=== PATIENT | female | born 1995 | race African-American/Black ===

== ENCOUNTER 2017-11-04 18:06 | Emergency (ER) | payer OTHER ==
[~2017-11-04] VITALS: Ht 165.1 cm; Wt 115.2 kg
[~2017-11-04 18:06] MED LIST: IBUP-1060 PO; LABE200T2 PO; NIFE10CA PO; ONDA4TAB10 PO; RANI150T6 PO
[2017-11-04 18:48] VITALS: BP 147/102
[2017-11-04] MEDS ORDERED: TETRACAINE 0.5% OPHTH SOLUTION 4ML BOTTLE. OD ONE (19:00)
[2017-11-04] MEDS ORDERED: FLUORESCEIN OPHTH TEST STRIP. OD ONE (19:00)
[2017-11-04] MEDS ORDERED: OFLO5DRO OD (19:12)
--- NOTE | 2017-11-04 19:13 | PHYS DOC ---
Past Medical History Past Medical History: No Pertinent History, Hypertension Past Surgical History: No Surgical History Alcohol Use: None Drug Use: Marijuana Adult General Chief Complaint Chief Complaint: EYE PROBLEMS HPI HPI Patient is a 21 year old presents to the emergency department stating that yesterday she was crying and was rubbing her eyes. She states that she's been having pain in the right eye since this occurred. She does have a history of corneal abrasions to the right eye. She states she wears contact lenses and glasses however does not have them in currently. Patient is unsure when her last tetanus immunization occurred. Review of Systems Review of Systems Constitutional: Denies fever or chills [] Eyes: Denies change in visual acuity, redness, c/o right eye pain HENT: Denies nasal congestion or sore throat [] Respiratory: Denies cough or shortness of breath [] Cardiovascular: No additional information not addressed in HPI [] GI: Denies abdominal pain, nausea, vomiting, bloody stools or diarrhea [] : Denies dysuria or hematuria [] Musculoskeletal: Denies back pain or joint pain [] Integument: Denies rash or skin lesions [] Neurologic: Denies headache, focal weakness or sensory changes [] Endocrine: Denies polyuria or polydipsia [] All other systems were reviewed and found to be within normal limits, except as documented in this note. Current Medications Current Medications Current Medications Medications (Trade) Dose Ordered Sig/Bruno Start Time Stop Time Status Last Admin Dose Admin Fluorescein Sodium (Ful-Nelli) 1 strip 1X ONCE 11/04/17 19:00 11/04/17 19:01 DC 11/04/17 18:59 1 STRIP Tetracaine HCl (Tetracaine) 1 drop 1X ONCE 11/04/17 19:00 11/04/17 19:01 DC 11/04/17 18:59 1 DROP Allergies Allergies Allergies Coded Allergies Type Severity Reaction Last Updated Verified No Known Drug Allergies 01/25/16 No Physical Exam Physical Exam Constitutional: Well developed, well nourished, no acute distress, non-toxic appearance. [] HENT: Normocephalic, atraumatic, bilateral external ears normal, oropharynx moist, no oral exudates, nose normal. [] Eyes: PERRLA, EOMI, conjunctiva normal, no discharge. [] Neck: Normal range of motion, no tenderness, supple, no stridor. [] Cardiovascular:Heart rate regular rhythm] Lungs & Thorax: no respiratory distress noted Skin: Warm, dry, no erythema, no rash. [] Extremities: No tenderness, no cyanosis, no clubbing, ROM intact, no edema. [] Neurologic: Alert and oriented X 3, normal motor function, normal sensory function, no focal deficits noted. [] Psychologic: Affect normal, judgement normal, mood normal. [] Current Patient Data Vital Signs Vital Signs Date Time Temp Pulse Resp B/P (MAP) Pulse Ox O2 Delivery O2 Flow Rate FiO2 11/04/17 18:48 98.3 88 18 97 Room Air 98.3 EKG EKG [] Radiology/Procedures Radiology/Procedures [] Course & Med Decision Making Course & Med Decision Making Pertinent Labs and Imaging studies reviewed. (See chart for details) No foreign body noted in the right eye. Tetracaine was placed into the I've with upper lid inverted with no foreign body noted. Fluorescein uptake was noted between the 4- 6:00 area. Patient will be placed on naproxen with a tetanus immunization update. Patient will be discharged home in stable condition with recommendations to follow-up with ophthalmology tomorrow. She'll be provided per discussion for ofloxacin recommended Tylenol or ibuprofen for pain and discomfort. Patient will be discharged home in stable condition signs symptoms return back [facility]mers primary been provided. All questions and concerns been answered patient's bedside. [] Dragon Disclaimer Dragon Disclaimer This electronic medical record was generated, in whole or in part, using a voice recognition dictation system. Departure Departure Impression: Primary Impression: Right corneal abrasion Disposition: 01 HOME, SELF-CARE Condition: STABLE Referrals: SHOLA MADSEN BAGGER AND STOCK HANDLER HELPER (PCP) Patient Instructions: Eye - Corneal Abrasion, [id number] Additional Instructions: Activity as tolerated. Medications as prescribed. Tylenol or ibuprofen for pain and discomfort. Do not place her contact lenses and until instructed to do so by your mechanical developer prover. Follow-up through mechanical developer prover in the next 24 hours. Return back to emergency #symptoms become worse. Scripts Ofloxacin (OCUFLOX) 5 Ml Drops 1-2 DROP OD BID, #[address] 1-2 drops in the right eye for the 5-7 days Prov: LAZARA ENAMORADO ACCESSIBILITY LIFT TECHNICIAN 12/21/17 Problem Qualifiers Primary Impression: Right corneal abrasion Encounter type: initial encounter Qualified Codes: S05.01XA - Injury of conjunctiva and corneal abrasion without foreign body, right eye, initial encounter LAZARA ENAMORADO ACCESSIBILITY LIFT TECHNICIAN Nov 04, 2017 19:13
[2017-11-04] MEDS ORDERED: DIPHTH,PERTUSS(ACELL),TET TOX 0.5 ML DISP.SYRIN. VAX IM ONE (19:15)
== END 2017-11-04 19:16 | disposition home or self-care (01) ==
LOC: ER 18:06
DX: S05.01XA Injury of conjunctiva and corneal abrasion without foreign body, right eye, initial encounter (principal); I10 Essential (primary) hypertension; F12.10 Cannabis abuse, uncomplicated; X58.XXXA Exposure to other specified factors, initial encounter; Y93.89 Activity, other specified; Y99.8 Other external cause status; Y92.89 Other specified places as the place of occurrence of the external cause
CPT/HCPCS: 90471; 90715; 99283-25

== ENCOUNTER 2018-04-24 12:34 | Emergency (ER) | payer SELFPAY, OTHER ==
[2018-04-24 13:17] LABS: BILIRUBIN,URINE NEGATIVE (NEG); CLARITY,URINE CLEAR; COLOR,URINE YELLOW; GLUCOSE,URINE NEGATIVE (NEG); NITRITE,URINE NEGATIVE (NEG); PROTEIN,URINE NEGATIVE (NEG-TRACE); UROBILINOGEN,URINE 0.2 mg/dL (0.2 mg/dL)
[2018-04-24 13:19] LABS: URINE HCG POC HCG POSITIVE (Negative)
[2018-04-24] MEDS: HYDROcodone/APAP 5/325MG 1 TAB TABLET PO (13:19)
[2018-04-24] MEDS: IBUPROFEN 800 MG TABLET. PO (13:19)
[2018-04-24 13:41] LABS: BACTERIA,URINE MOD /HPF (0-FEW); SQUAMOUS EPITHELIAL CELL,UR MOD /LPF
== END 2018-04-24 14:07 | disposition home or self-care (01) ==
LOC: ER 12:34
DX: R51 Headache (principal); I10 Essential (primary) hypertension
CPT/HCPCS: 81001; 81025; 99283

== ENCOUNTER 2018-05-11 15:19 | Emergency (ER) | payer SELFPAY ==
[2018-05-11 15:59] LABS: URINE HCG POC HCG NEGATIVE (Negative)
[2018-05-11 16:57] LABS: ADD MAN DIFF? NO
[2018-05-11 17:00] LABS: BASO % 0 % (0-3); EOS # 0.1 x10^3/uL (0.0-0.7); EOS % 1 % (0-3); HEMATOCRIT 37.7 % (36.0-47.0); HEMOGLOBIN 12.4 g/dL (12.0-15.5); LYMPH # 2.4 x10^3/uL (1.0-4.8); LYMPH % 21 % (24-48); MEAN CORPUSCULAR HEMOGLOBIN 25 pg (25-35); MEAN CORPUSCULAR HGB CONC 33 g/dL (31-37); MEAN CORPUSCULAR VOLUME 76 fL (79-100); MONO # 0.5 x10^3/uL (0.0-1.1); MONO % 4 % (0-9); NEUT # 8.7 x10^3uL (1.8-7.7); NEUT % 74 % (31-73); PLATELET COUNT 316 x10^3/uL (140-400); RED BLOOD COUNT 4.96 x10^6/uL (3.50-5.40); RED CELL DISTRIBUTION WIDTH 16.3 % (11.5-14.5); WHITE BLOOD COUNT 11.8 x10^3/uL (4.0-11.0)
[2018-05-11 17:01] LABS: BILIRUBIN,URINE NEGATIVE (NEG); CLARITY,URINE TURBID; COLOR,URINE YELLOW; GLUCOSE,URINE NEGATIVE (NEG); NITRITE,URINE NEGATIVE (NEG); PH,URINE 6.5; PROTEIN,URINE NEGATIVE (NEG-TRACE)
[2018-05-11 17:16] LABS: AMORPHOUS SEDIMENT,UR PRESENT /HPF; BACTERIA,URINE MODERATE /HPF (0-FEW); SQUAMOUS EPITHELIAL CELL,UR MOD /LPF
[2018-05-12 23:12] LABS: CHLAMYDIA PROBE Negative (Negative); GC PROBE Negative (Negative)
== END 2018-05-11 18:40 | disposition home or self-care (01) ==
LOC: ER 18:40
DX: O20.0 Threatened abortion (principal); O23.591 Infection of other part of genital tract in pregnancy, first trimester; N76.0 Acute vaginitis; B96.89 Other specified bacterial agents as the cause of diseases classified elsewhere; O34.80 Maternal care for other abnormalities of pelvic organs, unspecified trimester; N83.201 Unspecified ovarian cyst, right side; O16.9 Unspecified maternal hypertension, unspecified trimester; O99.324 Drug use complicating childbirth; F12.10 Cannabis abuse, uncomplicated; Z3A.00 Weeks of gestation of pregnancy not specified
CPT/HCPCS: 36415; 76801; 76817; 81001; 81025; 84702; 85025; 87086; 87491; 87591; 99285-25; Q0111

== ENCOUNTER 2018-06-09 18:13 | Emergency (ER) | payer SELFPAY, OTHER | END 2018-06-09 18:43 | disposition home or self-care (01) | LOC: ER 18:13 | DX: S46.911A Strain of unspecified muscle, fascia and tendon at shoulder and upper arm level, right arm, initial encounter (principal); I10 Essential (primary) hypertension; X58.XXXA Exposure to other specified factors, initial encounter; Y93.89 Activity, other specified; Y92.89 Other specified places as the place of occurrence of the external cause; Y99.8 Other external cause status | CPT/HCPCS: 99283 ==

== ENCOUNTER 2019-03-10 01:23 | Emergency (ER) | payer SELFPAY ==
[~2019-03-10] VITALS: Ht 165.1 cm; Wt 114.3 kg
[~2019-03-10 01:23] MED LIST changes: +CYCL5TAB PO; -LABE200T2 PO; +LABE200T4 PO; +METR500T PO; +OFLO5DRO OD; +RANI-376 PO; -RANI150T6 PO
[2019-03-10 01:36] VITALS: BP 149/89
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
[2019-03-10] MEDS ORDERED: CYCLOBENZAPRINE 10 MG TABLET. PO ONE (02:00)
[2019-03-10] MEDS ORDERED: KETOROLAC 30 MG/ML VIAL. IM ONE (02:00)
[2019-03-10] MEDS ORDERED: IBUPROFEN 200 MG TABLET. PO ONE (02:00)
[2019-03-10] MEDS ORDERED: ORPH100T PO (02:52)
[2019-03-10] MEDS ORDERED: NAPR-695 PO (02:52)
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
== END 2019-03-10 03:03 | disposition home or self-care (01) ==
LOC: ER 01:23
DX: S46.812A Strain of other muscles, fascia and tendons at shoulder and upper arm level, left arm, initial encounter (principal); I10 Essential (primary) hypertension; V43.52XA Car driver injured in collision with other type car in traffic accident, initial encounter; Y93.89 Activity, other specified; Y92.410 Unspecified street and highway as the place of occurrence of the external cause; Y99.8 Other external cause status
CPT/HCPCS: 73000; 73030; 81025; 96372; 99284; J1885

== ENCOUNTER 2021-09-09 00:26 | Emergency (ER) | payer SELFPAY ==
[~2021-09-09] VITALS: Ht 167.6 cm; Wt 103.0 kg
[~2021-09-09 00:26] MED LIST changes: +NAPR-695 PO; +ORPH100T PO
[2021-09-09 03:58] LABS: INFLUENZA A PATIENT NEGATIVE (NEGATIVE)
[2021-09-09 04:05] LABS: INFLUENZA B PATIENT POSITIVE (NEGATIVE)
[2021-09-09 04:45] LABS: BASO # 0.1 x10^3/uL (0.0-0.2); BASO % 0 % (0-3); EOS # 0.1 x10^3/uL (0.0-0.7); EOS % 0 % (0-3); HEMATOCRIT 33.8 % (36.0-47.0); HEMOGLOBIN 11.6 g/dL (12.0-15.5); LYMPH # 1.1 x10^3/uL (1.0-4.8); LYMPH % 5 % (24-48); MEAN CORPUSCULAR HEMOGLOBIN 27 pg (25-35); MEAN CORPUSCULAR HGB CONC 34 g/dL (31-37); MEAN CORPUSCULAR VOLUME 78 fL (79-100); MONO # 0.5 x10^3/uL (0.0-1.1); MONO % 2 % (0-9); NEUT # 18.7 x10^3/uL (1.8-7.7); NEUT % 92 % (31-73); PLATELET COUNT 295 x10^3/uL (140-400); RED BLOOD COUNT 4.34 x10^6/uL (3.50-5.40); RED CELL DISTRIBUTION WIDTH 15.5 % (11.5-14.5); WHITE BLOOD COUNT 20.3 x10^3/uL (4.0-11.0)
--- NOTE | 2021-09-09 05:05 | RAD ---
Examination: Bilateral Lower Extremity Venous Doppler Ultrasound History: Shortness of breath Comparison: None Procedure: Thurman scale, color flow 2D and spectal waveform analysis images are obtained with and witho ut compression in the area of the common femoral vein, superficial femoral vein - femoral vein juncti on, main femoral vein (superficial femoral vein) and popliteal vein. Veins of the proximal calf are a lso imaged. Findings: There is normal duplex flow, color flow and compressibility of all visualized vein segments. No evide nce of deep venous thrombus is present. Impression: No evidence of DVT in the bilateral lower extremity venous system. Electronically signed by: Kd Braswell MD (09/09/2021 5:03 AM) [id number]
--- NOTE | 2021-09-09 05:12 | RAD ---
EXAM: US OB Limited CLINICAL HISTORY: Intrauterine COMPARISON: None available. TECHNIQUE: Limited transabdominal ultrasound of the uterus was performed. FINDINGS: Single living intrauterine identified with heart rate 155 bpm. position is ceph alic. The placenta is in the posterior wall. Placental grade is grade 0. The biparietal diameter measures 4.2 cm corresponding to 19 weeks and 0 days. The head circumference measures 17.4 cm corresponding to 20 weeks and 0 days Abdominal circumference measures 14.0 cm corresponding to 19 weeks and 3 days. Femur length measures 3 cm corresponding to 19 weeks and 2 days. Ultrasound age 19 weeks and 3 days with estimated date delivery 01/31/2022. IMPRESSION: Single living intrauterine as above. Electronically signed by: Kd Braswell MD (09/09/2021 5:09 AM) [id number]
[2021-09-09 05:33] LABS: % LYMPHS 6 % (24-48); % MONOS 2 % (0-10); % SEGS 92 % (35-66); PLT ESTIMATE ADEQUATE (ADEQUATE)
[2021-09-09 05:41] LABS: CALCIUM 8.6 mg/dL (8.5-10.1); CREATININE 0.5 mg/dL (0.6-1.0); GFR 179.1; POTASSIUM 3.7 mmol/L (3.5-5.1)
[2021-09-09 05:47] LABS: ALBUMIN 3.1 g/dL (3.4-5.0); ALBUMIN/GLOBULIN RATIO 0.9 (1.0-1.7); TOTAL BILIRUBIN 0.4 mg/dL (0.2-1.0); TOTAL PROTEIN 6.5 g/dL (6.4-8.2)
--- NOTE | 2021-09-09 06:12 | PHYS DOC ---
Past Medical History Past Medical History: Hypertension (CHANTE BRITO DO) Past Surgical History: No Surgical History (CHANTE BRITO DO) Smoking Status: Never Smoker Alcohol Use: None Drug Use: Marijuana (CHANTE BRITO DO) General Adult EDM: Chief Complaint: SHORTNESS OF BREATH HPI: HPI: 25 yo Afro-[place] F@proximately 19 weeks , presents the ED with complaints of " I cannot breathe," for the past 2 days with associated nasal congestion. Patient reports tested positive for Covid and gave the disease to her mother 1 month ago who from Covid at 63 years of age- is planning on getting vaccinated now. Reports history of elevated blood pressure in both pregnancies but is unsure if she was ever diagnosed with preeclampsia. Her has been followed at [facility] and takes a baby aspirin daily. No history of underlying asthma COPD or lung disease. No history of blood clots. Only medication she takes is a vitamin. No alcohol or drug use. Has no pcp. (CHANTE BRITO DO) Review of Systems: Review of Systems: Constitutional: Denies fever or chills. [] Eyes: Denies change in visual acuity. [] HENT: Denies nasal congestion or sore throat. [] Respiratory: Denies cough or hemoptysis Cardiovascular: Denies chest pain or edema. [] GI: Denies abdominal pain, nausea, vomiting, bloody stools or diarrhea. [] : Denies dysuria or vaginal bleeding Musculoskeletal: Denies back pain or joint pain or lower extremity swelling Integument: Denies rash or diaphoresis Neurologic: Denies headache, focal weakness or sensory changes. [] Endocrine: Denies polyuria or polydipsia. [] Lymphatic: Denies swollen glands. [] Psychiatric: Denies depression or anxiety. [] (CHANTE BRITO DO) Heart Score: C/O Chest Pain: No Risk Factors: Risk Factors: DM, Current or recent (<one month) smoker, HTN, HLP, family history of CAD, obesity. Risk Scores: Score 0 - 3: 2.5% MACE over next 6 weeks - Discharge Home Score 4 - 6: 20.3% MACE over next 6 weeks - Admit for Clinical Observation Score 7 - 10: 72.7% MACE over next 6 weeks - Early Invasive Strategies (CHANTE BRITO DO) Allergies: Allergies: Allergies Coded Allergies Type Severity Reaction Last Updated Verified No Known Drug Allergies 01/25/16 No ([facility] Physical Exam: PE: Constitutional: Well developed, well nourished, no acute distress, non-toxic appearance, elevated blood pressure, obese HENT: Normocephalic, atraumatic, Eyes: EOMI, conjunctiva normal, no discharge. Neck: Normal range of motion, supple, Cardiovascular: S1/2 present, regular rhythm Lungs & Thorax: Speaking in full sentences, bilateral equal chest rise, no tachypnea or increased work of breathing, no hypoxia Abdomen: soft, no tenderness, Skin: Warm, dry, no erythema, no rash. [] Back: No tenderness, no CVA tenderness. [] Extremities: No tenderness, no cyanosis, no unilateral lower extremity edema Neurologic: Alert and oriented X 3, normal motor function, normal sensory function, no focal deficits noted. [] Psychologic: Affect normal, judgement normal, mood normal. [] ([facility] Current Patient Data: Labs: Laboratory Tests Test 09/09/21 03:38 09/09/21 04:38 09/09/21 05:25 Influenza Type A Antigen Negative (NEGATIVE) Influenza Type B Antigen Positive (NEGATIVE) *A SARS-CoV-2 Antigen (Rapid) Negative (NEGATIVE) White Blood Count 20.3 x10^3/uL (4.0-11.0) H Red Blood Count 4.34 x10^6/uL (3.50-5.40) Hemoglobin 11.6 g/dL (12.0-15.5) L Hematocrit 33.8 % (36.0-47.0) L Mean Corpuscular Volume 78 fL (79-100) L Mean Corpuscular Hemoglobin 27 pg (25-35) Mean Corpuscular Hemoglobin Concent 34 g/dL (31-37) Red Cell Distribution Width 15.5 % (11.5-14.5) H Platelet Count 295 x10^3/uL (140-400) Neutrophils (%) (Auto) 92 % (31-73) H Lymphocytes (%) (Auto) 5 % (24-48) L Monocytes (%) (Auto) 2 % (0-9) Eosinophils (%) (Auto) 0 % (0-3) Basophils (%) (Auto) 0 % (0-3) Neutrophils # (Auto) 18.7 x10^3/uL (1.8-7.7) H Lymphocytes # (Auto) 1.1 x10^3/uL (1.0-4.8) Monocytes # (Auto) 0.5 x10^3/uL (0.0-1.1) Eosinophils # (Auto) 0.1 x10^3/uL (0.0-0.7) Basophils # (Auto) 0.1 x10^3/uL (0.0-0.2) Segmented Neutrophils % 92 % (35-66) H Lymphocytes % 6 % (24-48) L Monocytes % 2 % (0-10) Platelet Estimate Adequate (ADEQUATE) Maternal Serum HCG Beta Subunit 8641 mIU/mL (0-5) H Sodium Level 139 mmol/L (136-145) Potassium Level 3.7 mmol/L (3.5-5.1) Chloride Level 101 mmol/L (98-107) Carbon Dioxide Level 25 mmol/L (21-32) Anion Gap 13 (6-14) Blood Urea Nitrogen 5 mg/dL (7-20) L Creatinine 0.5 mg/dL (0.6-1.0) L Estimated GFR (Cockcroft-Gault) 179.1 BUN/Creatinine Ratio 10 (6-20) Glucose Level 105 mg/dL (70-99) H Calcium Level 8.6 mg/dL (8.5-10.1) Total Bilirubin 0.4 mg/dL (0.2-1.0) Aspartate Amino Transferase (AST) 8 U/L (15-37) L Alanine Aminotransferase (ALT) 15 U/L (14-59) Alkaline Phosphatase 51 U/L (46-116) Troponin I Quantitative < 0.017 ng/mL (0.000-0.055) Total Protein 6.5 g/dL (6.4-8.2) Albumin 3.1 g/dL (3.4-5.0) L Albumin/Globulin Ratio 0.9 (1.0-1.7) L Laboratory Tests 09/09/21 04:38 Laboratory Tests 09/09/21 05:25 Vital Signs: Vital Signs Date Time Temp Pulse Resp B/P (MAP) Pulse Ox O2 Delivery O2 Flow Rate FiO2 09/09/21 04:36 86 20 157/98 (117) 95 Room Air 09/09/21 03:25 98.2 98.2 (CHANTE BRITO DO) EKG: EKG: [] (CHANTE BRITO DO) Radiology/Procedures: Radiology/Procedures: [] IMAGING REPORT Signed PATIENT: NAHEED MCINTYRE JACCOUNT: [id number] : 1995 LOCATION: ER AGE: 25 SEX: F EXAM STATUS: REG ER ORD. PHYSICIAN: CHANTE BRITO DO REASON: confirm iup, 19 weeks? PROCEDURE: OB LIMITED EXAM: US OB Limited CLINICAL HISTORY: Intrauterine COMPARISON: None available. TECHNIQUE: Limited transabdominal ultrasound of the uterus was performed. FINDINGS: Single living intrauterine identified with heart rate 155 bpm. position is cephalic. The placenta is in the posterior wall. Placental grade is grade 0. The biparietal diameter measures 4.2 cm corresponding to 19 weeks and 0 days. The head circumference measures 17.4 cm corresponding to 20 weeks and 0 days Abdominal circumference measures 14.0 cm corresponding to 19 weeks and 3 days. Femur length measures 3 cm corresponding to 19 weeks and 2 days. Ultrasound age 19 weeks and 3 days with estimated date delivery 01/31/2022. IMPRESSION: Single living intrauterine as above. Electronically signed by: Kd Braswell MD (09/09/2021 5:09 AM) [id number] DICTATED and SIGNED BY: KD BRASWELL MD DATE: 09/09/21 [id number] 0 IMAGING REPORT Signed PATIENT: NAHEED MCINTYRE JACCOUNT: [id number] : 1995 LOCATION: ER AGE: 25 SEX: F EXAM STATUS: REG ER ORD. PHYSICIAN: CHANTE BRITO DO REASON: soa, r/o dvt PROCEDURE: VENOUS LOWER EXT BILATERAL Examination: Bilateral Lower Extremity Venous Doppler Ultrasound History: Shortness of breath Comparison: None Procedure: Thurman scale, color flow 2D and spectal waveform analysis images are obtained with and without compression in the area of the common femoral vein, s uperficial femoral vein - femoral vein junction, main femoral vein (superficial femoral vein) and popliteal vein. Veins of the proximal calf are also imaged. Findings: There is normal duplex flow, color flow and compressibility of all visualized vein segments. No evidence of deep venous thrombus is present. Impression: No evidence of DVT in the bilateral lower extremity venous system. Electronically signed by: Kd Braswell MD (09/09/2021 5:03 AM) [id number] DICTATED and SIGNED BY: KD BRASWELL MD DATE: 09/09/21 [id number] 0 (CHANTE BRITO DO) Radiology/Procedures: IMAGING REPORT Signed PATIENT: NAHEED MCINTYRE JACCOUNT: [id number] : 1995 LOCATION: ER AGE: 25 SEX: F EXAM STATUS: REG ER ORD. PHYSICIAN: CHANTE BRITO DO REASON: soa, r/o pe, h/o cardiomegaly PROCEDURE: CT ANGIOGRAPHY CHEST Exam Date: 09/09/2021 7:07 AM CTA CHEST Indication: Reason: soa, r/o pe, h/o cardiomegaly / Spl. Instructions: IV omni 350 90 mls / History: . TECHNIQUE: CT angiogram of the chest was performed following the administration of nonionic intravenous contrast for evaluation of pulmonary em bolus. 3D MIPs were created and reviewed on an independent workstation to assist in diagnosis and clinical management. One or more of the following dose reduction techniques were utilized: *Automated exposure control (AEC) *Adjustment of mA and/or kV according to patient size *Use of iterative reconstruction technique *CT scan done according to ALARA, or ALARA/IMAGE GENTLY FINDINGS: There is slightly suboptimal opacification of the pulmonary arteries due to bolus timing. No definite central intravascular filling defects are appreciated. There is no definite evidence for central pulmonary embolus. The aorta is normal in caliber without evidence for dissection. The heart is normal in size without pericardial effusion. The visualized thyroid gland is within normal limits. No lymphadenopathy is seen. There are patchy groundglass infiltrates scattered throughout the lungs bila terally consistent with atypical multifocal pneumonia. The central airways are patent. There is no pleural effusion or pneumothorax. There is a 2 mm subpleural nodule in the left lung on image 82 series 3. Images of the upper abdomen demonstrate no focal abnormality. Osseous structures are intact. IMPRESSION: Slightly suboptimal opacification of the pulmonary arteries due to bolus timing limits evaluation. No definite evidence for central pulmonary embolus, allowing for the limitations of the exam. Patchy groundglass infiltrates in the lungs bilaterally are nonspecific but sugg estive of atypical pneumonia. Continued imaging follow-up to resolution is recommended following treatment. 2 mm lung nodule on the left. According to the 2017 Fleischner Society Guidelines for Management of Incidental Pulmonary Nodules Detected on CT, for low risk patients (minimal or absent history of smoking or other known risk factors), non-calcified solid nodules less than or equal to 6 mm in diameter do not require routine follow up. If risk factors exist or the nodule has an upper lobe location, a follow up CT is optional in 12 months. If unchanged at that time, no further follow up is needed. Electronically signed by: Cassie Coleman MD (09/09/2021 7:41 AM) [id number] DICTATED and SIGNED BY: CASSIE COLEMAN MD DATE: 09/09/21 [id number] 0 (CHIOMA PINEDA DO) Course & Med Decision Making: Course & Med Decision Making Pertinent Labs and Imaging studies reviewed. (See chart for details) Concern for uncontrolled hypertension secondary to menstrual less than 20 weeks with chest x-ray concerning for cardiomegaly compared to prior chest x-ray in 2016. Patient positive for influenza B with nonspecific leukocytosis. Ultrasound shows no DVT. Given elevated blood pressure, increased heart size, with recent Covid, patient is pending CTA of the chest to evaluate for pulmonary embolus. Urinalysis still pending to evaluate for proteinuria. Patient has no signs of severe symptoms preeclampsia-no blurry vision, no altered mental status, lower extremity edema or pulmonary edema. Due to shift change patient was signed out to oncoming physician Dr. Elena dumont for further medical evaluation disposition. (CHANTE BRITO DO) Course & Med Decision Making This patient was initially seen by Dr. Brito. I assumed care at 0600 today. Please see her note for further details of H&P. The patient had a CT angiogram of the chest, which revealed no evidence of PE, cardiomegaly or pericardial effusion. She does have atypical pneumonia/pneumonitis findings, which are consistent with her influenza B diagnosis. She manifests no evidence of respiratory failure or distress. No hypoxia. Her blood pressure is somewhat improved. The patient reports that she thinks she sees someone named Dr. Hankins at an [facility] for her care. I was ultimately able to get a hold of the office and I spoke with one of the office nurses, who is quite familiar with her. The patient actually has a scheduled appointment in 2 days. She was supposed to follow-up for a 24-hour urinalysis to follow for proteinuria. She never followed up on this. They are aware of her chronic and uncontrolled hypertension and has a history of noncompliance. She has been previously prescribed labetalol, with reported noncompliance. I discussed all of this with the patient. I explained how important it is for her to comply with medical management and medical treatment and her physicians recommendations. I told her to keep her appointment with her OB in 2 days, as scheduled. Currently, there is no indication for hospital admission, further invasive exams. She does reports having some nausea, which has been present since the beginning of this . She is given 1 dose of Zofran here. She will be prescribed antiemetics for discharge. Home care instructions are given. She is within 48 hours of onset of influenza symptoms, so she is prescribed Tamiflu. She is amenable to taking this. She promises to comply with medical treatment, including medications and follow-up for her 24 urine. Strict return precautions are given. (CHIOMA PINEDA DO) Jill Disclaimer: Jill Disclaimer: This electronic medical record was generated, in whole or in part, using a voice recognition dictation system. (CHANTE BRITO DO) Departure Departure Impression: Primary Impression: Dyspnea Qualified Codes: R06.00 - Dyspnea, unspecified Additional Impressions: Influenza B Chronic hypertension Non-compliance with treatment Disposition: HOME / SELF CARE / HOMELESS Condition: STABLE Referrals: NO PCP (PCP) Patient Instructions: Bird Flu, Je Influenza Viruses, Hypertension During Additional Instructions: Please take the prescribed medications as directed. It is very important that you monitor your blood pressure at home, take the blood pressure medications as prescribed. You have a scheduled appointment in your OB office for the , i.e. in 2 days. You are supposed to return a 24-hour urine to assess for protein in your urine, as instructed by your OB doctors office, please follow-up for this as well. You have a contagious disease, influenza, so you should wear a mask, you should not be around others who may be prone to more severe di sease, such as people who have lung disease, asthma, COPD, people who are immune compromised. You should refrain from going out in public unnecessarily, as you may spread your influenza infection to others. Return to the ER for severe chest pain, more severe shortness of breath, if your oxygen level drops below 90%, if you have uncontrolled vomiting, dehydration or any other concerns. Keep your appointment with your OB in 2 days. Scripts Oseltamivir Phosphate (TAMIFLU) 75 Mg Capsule 1 CAP PO BID for 5 Days, #10 CAP Prov: CHIOMA PINEDA DO 09/09/21 Doxylamine/Pyridoxine Hcl (DICLEGIS DR 10-10 MG TABLET) 1 Each Tablet.dr 1 EACH PO QHS for vomiting, #20 TAB.SR Prov: CHIOMA PINEDA DO 09/09/21 Labetalol Hcl (LABETALOL HCL) 100 Mg Tablet 1 TAB PO BID for hypertension, #60 TAB 5 Refills Prov: CHIOMA PINEDA DO 09/09/21 CHANTE BRITO DO Sep 09, 2021 06:12 CHIOMA PINEDA DO Sep 09, 2021 07:54
[2021-09-09] MEDS ORDERED: IOHEXOL 350 MG/ML 100 ML VIAL. IV ONE (07:15)
--- NOTE | 2021-09-09 07:40 | RAD ---
XR CHEST 1V Clinical History: Reason: soa / Spl. Instructions: / History: Technique: AP view of the chest was obtained at 09/09/2021 3:44 AM. Comparison: None. Findings: The cardiomediastinal silhouette is normal. The pulmonary vasculature is normal. There is a few subtl e peripheral patchy opacities bilaterally. Impression: Minimal pulmonary infiltrates could be early atypical pneumonia. Electronically signed by: Edward Bird III, MD (09/09/2021 7:37 AM) [facility]
--- NOTE | 2021-09-09 07:43 | RAD ---
Exam Date: 09/09/2021 7:07 AM CTA CHEST Indication: Reason: soa, r/o pe, h/o cardiomegaly / Spl. Instructions: IV omni 350 90 mls / History: . TECHNIQUE: CT angiogram of the chest was performed following the administration of nonionic intrave nous contrast for evaluation of pulmonary embolus. 3D MIPs were created and reviewed on an [employer] workstation to assist in diagnosis and clinical management. One or more of the following dose red uction techniques were utilized: *Automated exposure control (AEC) *Adjustment of mA and/or kV according to patient size *Use of iterative reconstruction technique *CT scan done according to ALARA, or ALARA/IMAGE GENTLY FINDINGS: There is slightly suboptimal opacification of the pulmonary arteries due to bolus timing. No definit e central intravascular filling defects are appreciated. There is no definite evidence for central p ulmonary embolus. The aorta is normal in caliber without evidence for dissection. The heart is normal in size without pericardial effusion. The visualized thyroid gland is within normal limits. No lymphadenopathy is seen. There are patchy groundglass infiltrates scattered throughout the lungs bilaterally consistent with a typical multifocal pneumonia. The central airways are patent. There is no pleural effusion or pneumothorax. There is a 2 mm subpleural nodule in the left lung on image 82 series 3. Images of the upper abdomen demonstrate no focal abnormality. Osseous structures are intact. IMPRESSION: Slightly suboptimal opacification of the pulmonary arteries due to bolus timing limits evaluation. N o definite evidence for central pulmonary embolus, allowing for the limitations of the exam. Patchy groundglass infiltrates in the lungs bilaterally are nonspecific but suggestive of atypical pn eumonia. Continued imaging follow-up to resolution is recommended following treatment. 2 mm lung nodule on the left. According to the 2017 Fleischner Society Guidelines for Management of Incidental Pulmonary Nodules Detected on CT, for low risk patients (minimal or absent history of smok ing or other known risk factors), non-calcified solid nodules less than or equal to 6 mm in diameter do not require routine follow up. If risk factors exist or the nodule has an upper lobe location, a f ollow up CT is optional in 12 months. If unchanged at that time, no further follow up is needed. Electronically signed by: Brenton Coleman MD (09/09/2021 7:41 AM) [id number]
[2021-09-09] MEDS ORDERED: ONDANSETRON PF 4 MG/2 ML VIAL. IVP ONE (07:45)
[2021-09-09 08:49] LABS: BILIRUBIN,URINE NEGATIVE (NEG); CLARITY,URINE CLEAR; COLOR,URINE YELLOW; NITRITE,URINE NEGATIVE (NEG); PROTEIN,URINE NEGATIVE (NEG-TRACE); UROBILINOGEN,URINE 0.2 mg/dL (0.2 mg/dL)
[2021-09-09 08:58] LABS: BACTERIA,URINE FEW /HPF (0-FEW)
[2021-09-09 09:20] VITALS: BP 146/84
[2021-09-09] MEDS ORDERED: OSEL75CA PO (09:29)
[2021-09-09] MEDS ORDERED: LABE100T5 PO (09:29)
[2021-09-09] MEDS ORDERED: DOXY1TAB3 PO (09:29)
--- NOTE | 2021-09-09 16:09 | NUR ---
IP: Informed pt of negative covid test. pt verbalized understanding.
== END 2021-09-09 09:39 | disposition home or self-care (01) ==
LOC: ER 00:26
DX: O99.512 Diseases of the respiratory system complicating pregnancy, second trimester (principal); R06.02 Shortness of breath; Z20.822 Contact with and (suspected) exposure to COVID-19; J10.1 Influenza due to other identified influenza virus with other respiratory manifestations; Z91.19 Patient's noncompliance with other medical treatment and regimen; O16.2 Unspecified maternal hypertension, second trimester; Z3A.19 19 weeks gestation of pregnancy
CPT/HCPCS: 36415; 71045; 71275; 76815; 80053; 81001; 84484; 84702; 85007; 85025; 87426; 87804; 93970; 96374; 99285; J2405; Q9967; U0003; U0005